=== PATIENT | male | born 1995 | race Caucasian/White ===

== ENCOUNTER 2018-08-15 05:09 | Emergency (ER) | payer BC, OTHER ==
[~2018-08-15] VITALS: Ht 182.9 cm; Wt 77.1 kg
[2018-08-15 05:21] VITALS: BP 136/68
== END 2018-08-15 06:01 | disposition left against medical advice (07) ==
LOC: ER 05:09
DX: S60.812A Abrasion of left wrist, initial encounter (principal); M54.9 Dorsalgia, unspecified; M54.2 Cervicalgia; V43.92XA Unspecified car occupant injured in collision with other type car in traffic accident, initial encounter; Y93.89 Activity, other specified; Y99.8 Other external cause status; Y92.410 Unspecified street and highway as the place of occurrence of the external cause